=== PATIENT | male | born 1950 | race Caucasian/White ===

== ENCOUNTER 2018-01-19 12:25 | Emergency (ER) | payer OTHER ==
[~2018-01-19] VITALS: Ht 175.3 cm; Wt 83.0 kg
[2018-01-19 12:30] VITALS: BP 126/68; PULSE 82; RESP 16; TEMP 98.2; O2SAT 98
[2018-01-19] MEDS ORDERED: METF500T4 PO (12:52)
[2018-01-19] MEDS ORDERED: ATOR20TA15 PO (12:52)
[2018-01-19] MEDS ORDERED: LISI40TA PO (12:52)
[2018-01-19] MEDS ORDERED: GABA600T PO (12:52)
[2018-01-19] MEDS ORDERED: AMLO5TAB2 PO (12:52)
[2018-01-19] MEDS ORDERED: TAMS0.4C4 (12:52)
--- NOTE | 2018-01-19 13:37 | PD ---
HPI Chief Complaint: Injury Time Seen by Provider: 13:08 Travel History International Travel<30 days: No Contact w/Intl Traveler<30days: No Traveled to known affect area: No History of Present Illness HPI 67-year-old male here with left fifth digit pain 1 day. He reports that he stubbed the toe on a piece of furniture this morning. He now has pain, swelling , bruising of the toe. Denies altered sensation of the digit. Pain is reproducible to palpation of the toe and attempted range of motion. Slightly relieved with rest and elevation. Symptom severity is moderate. PFSH Past Medical History High Cholesterol: Yes Diabetes: Yes Patient Takes Glucophage: Yes (01-19) Diminished Hearing: No Genitourinary: Yes (prosate) Hypertension: Yes Immunizations Current: Yes Tetanus Vaccination: < 5 Years Influenza Vaccination: Yes Social History Alcohol Use: No Tobacco Use: No Substance Use: No Allergies-Medications (Allergen,Severity, Reaction): Coded Allergies: Penicillins (Verified Allergy, Severe, TOLD CHILD, 01/19/18) Reported Meds & Prescriptions Reported Meds & Active Scripts Active Reported Tamsulosin (Tamsulosin HCl) 0.4 Mg Cap 0.4 Mg HS Atorvastatin (Atorvastatin Calcium) 20 Mg Tab 20 Mg PO HS Gabapentin 600 Mg Tab 600 Mg PO HS Metformin ER (Metformin HCl) 500 Mg Rachel 500 Mg PO DAILY With evening meal Amlodipine (Amlodipine Besylate) 5 Mg Tab 5 Mg PO DAILY Lisinopril 40 Mg Tab 40 Mg PO DAILY Review of Systems Except as stated in HPI: all other systems reviewed are Neg Physical Exam Narrative GENERAL: Alert and well-appearing 67-year-old male SKIN: Warm and dry. HEAD: Normocephalic. EYES: No injection or drainage. NECK: Supple CARDIOVASCULAR: Regular rate and rhythm RESPIRATORY: Breath sounds equal bilaterally. No accessory muscle use. GASTROINTESTINAL: nondistended. MUSCULOSKELETAL: No cyanosis. Left foot: Mild swelling, ecchymosis to the fifth digit. Toe appears mildly displaced laterally. Limited range of motion due to pain. Normal sensation. Brisk cap refill. 2+ DP pulse Data Data Last Documented VS Vital Signs Date Time Temp Pulse Resp B/P (MAP) Pulse Ox O2 Delivery O2 Flow Rate FiO2 01/19/18 12:30 98.2 82 16 126/68 (87) 98 Orders Orders Toe (Min 2vws) (4/19/18 ) MDM Medical Decision Making Medical Screen Exam Complete: Yes Emergency Medical Condition: Yes Differential Diagnosis Toe fracture, dislocation, sprain Narrative Course 67-year-old male here with trauma to his left fifth toe. X-ray show minimally displaced proximal phalanx fracture of the fifth toe. Toes were nancy taped. Postop shoe applied. He is to follow-up with podiatry. Pain medication was offered he declined. Diagnosis Primary Impression: Toe fracture Qualified Codes: S92.512A - Displaced fracture of proximal phalanx of left lesser toe(s), initial encounter for closed fracture Referrals: Callie Cunningham DPM [employer] [facility] Additional Instructions: Ice and elevate the extremity. Postop she was directed. Follow-up with podiatry this week Disposition: 01 DISCHARGE HOME Condition: Stable Gaye Stoner Jan 19, 2018 13:37
--- NOTE | 2018-01-19 14:29 | RADRPT ---
EXAM DATE/TIME: 01/19/2018 13:19 [facility] COMPARISON: No previous studies available for comparison. INDICATIONS : Stubbed toe on chair this morning. MEDICAL HISTORY : None. SURGICAL HISTORY : None. ENCOUNTER: Initial ACUITY: 1 day PAIN SCORE: 8/10 LOCATION: Left 5th digit. FINDINGS: Examination of the fifth digit of the left foot demonstrates an apparent minimally displaced fracture through the medial distal aspect of the proximal phalanx of the fifth ray, best seen on the frontal projection. Remaining osseous structures are intact. CONCLUSION: Minimally displaced intra-articular fracture through the distal medial aspect of the proximal phalanx of the first ray. Conner Balderas MD on January 19, 2018 at 14:23 Board Certified Radiologist. This report was verified electronically.
== END 2018-01-19 14:54 | disposition home or self-care (01) ==
LOC: PHEFT 12:25
DX: S92.512A Displaced fracture of proximal phalanx of left lesser toe(s), initial encounter for closed fracture (principal); W22.03XA Walked into furniture, initial encounter; E78.00 Pure hypercholesterolemia, unspecified; E11.9 Type 2 diabetes mellitus without complications; I10 Essential (primary) hypertension
CPT/HCPCS: 73660; 99283; L3260